=== PATIENT | male | born 1950 | race Caucasian/White ===

== ENCOUNTER 2017-05-24 17:40 | Emergency (ER) | payer MEDICARE ==
[~2017-05-24] VITALS: Ht 172.7 cm; Wt 88.0 kg
[2017-05-24 17:45] VITALS: Ht 172.7 cm; Wt 88.0 kg
[2017-05-24 20:30] VITALS: BP 170/84
== END 2017-05-24 20:30 | disposition home or self-care (01) ==
LOC: ED 17:40
DX: S01.111A Laceration without foreign body of right eyelid and periocular area, initial encounter (principal); E11.9 Type 2 diabetes mellitus without complications; I10 Essential (primary) hypertension; R11.10 Vomiting, unspecified; E78.00 Pure hypercholesterolemia, unspecified; W18.39XA Other fall on same level, initial encounter; Y93.89 Activity, other specified; Y99.8 Other external cause status; Y92.89 Other specified places as the place of occurrence of the external cause
CPT/HCPCS: 90715; J2001